=== PATIENT | male | born 1955 | race Caucasian/White ===

== ENCOUNTER 2018-06-19 13:55 | Emergency (ER) | payer OTHER, MEDICAID ==
[~2018-06-19] VITALS: Ht 157.5 cm; Wt 82.6 kg
[2018-06-19 13:55] VITALS: BP 148/87
--- NOTE | 2018-06-19 13:55 | NUR ---
PATIENT BIBA TO BED 3 AT THIS TIME.
--- NOTE | 2018-06-19 14:00 | NUR ---
BIBA C/O INTERMITTENT CP X 1 DAY 12/12 NON RADIATING, EPIGASTRIC AREA, & C/O N/V X 1 DAY. NSR, HR EVEN/REGULAR, PT IN NSR, PT DENIES FEVER/RECENT ILLNESS. PT STATES HE HAS HX OF "CARDIAC DISORDER" BUT DOESN'T KNOW THE EXACT PROBLEM. SKIN IS PINK/WARM/DRY; AAOX4 WITH UNSTEADY GAIT; LUNGS CLEAR BL;PATIENT POSITIONED FOR COMFORT; HOB ELEVATED; BEDRAILS UP X1; BED DOWN. ER MD MADE AWARE OF PT STATUS.
--- NOTE | 2018-06-19 14:03 | NUR ---
PT PLACED ON SLICING MACHINE TENDER
--- NOTE | 2018-06-19 14:09 | NUR ---
PT PLACED ON NC 2 LPM DUE TO O2 SAT 90% RA
[2018-06-19] MEDS ORDERED: KETOROLAC 60 MG/2 ML VIAL IM ONE (14:20)
--- NOTE | 2018-06-19 14:23 | NUR ---
ERMD AT BEDSIDE
[2018-06-19 14:24] LABS: BASOPHILS # (AUTO) 0.1 K/uL (0.00-0.22); BASOPHILS % (AUTO) 1.7 % (0.0-2.0); EOSINOPHILS % (AUTO) 0.8 % (0.0-4.0); HEMATOCRIT 41.4 % (36-52); LYMPHOCYTES # (AUTO) 1.4 K/uL (2.0-11.5); LYMPHOCYTES % (AUTO) 25.8 % (20.5-51.1); MEAN CORPUSCULAR HEMOGLOBIN 29 pg (27-31); MEAN CORPUSCULAR HGB CONC 34 g/dL (33-37); MEAN CORPUSCULAR VOLUME 85.4 fL (80-94); MONOCYTES # (AUTO) 0.3 K/uL (0.8-1.0); MONOCYTES % (AUTO) 6.1 % (1.7-9.3); NEUTROPHILS # (AUTO) 3.6 K/uL (1.8-7.7); NEUTROPHILS % (AUTO) 65.6 % (42.2-75.2); PLATELET COUNT (AUTO) 283 K/uL (140-450); RED BLOOD CELL COUNT(AUTO) 4.85 MIL/uL (4.20-6.10); RED CELL DISTRIBUTION WIDTH 14.7 % (11.6-13.7); WHITE BLOOD COUNT (AUTO) 5.5 K/uL (4.8-10.8)
[2018-06-19 14:44] LABS: ALBUMIN 3.8 g/dL (3.4-5.0); ANION GAP 15.6 (8-16); CARBON DIOXIDE 25.1 mmol/L (21-32); POTASSIUM 3.7 mmol/L (3.5-5.1); TOTAL BILIRUBIN 0.3 mg/dL (0.0-1.0)
--- NOTE | 2018-06-19 15:45 | NUR ---
PATIENT UNABLE TO PASS ROAD TEST AT THIS TIME. ER MD NOTIFIED.
--- NOTE | 2018-06-19 16:05 | NUR ---
CALLED FOR RIDE, SHE STATES SHE DOES NOT HAVE A CAR RIGHT NOW AND CANNOT PICK HIM UP.
[2018-06-19 17:24] VITALS: BP 128/80
--- NOTE | 2018-06-19 17:25 | NUR ---
Patient discharged with v/s stable. Written and verbal after care instructions given and explained. Patient verbalized understanding. Wheel Chair Assisted with to car, PICKED HIM UP FROM ED. PRESCRIPTION MOTRIN GIVEN. . All questions addressed prior to discharge. Advised to follow up with PMD.
== END 2018-06-19 17:25 | disposition home or self-care (01) ==
LOC: MED 13:55
DX: R07.89 Other chest pain (principal); R06.02 Shortness of breath; R05 Cough; R11.2 Nausea with vomiting, unspecified; I10 Essential (primary) hypertension; E11.9 Type 2 diabetes mellitus without complications; F17.210 Nicotine dependence, cigarettes, uncomplicated
CPT/HCPCS: 36415; 71045; 80053; 83880; 84484; 85025; 85610; 85730; 93005; 96372; 99284; G0482; J1885; Q0092

== ENCOUNTER 2018-08-11 20:43 | Emergency (ER) | payer OTHER, MEDICAID ==
[~2018-08-11] VITALS: Ht 157.5 cm; Wt 88.5 kg
--- NOTE | 2018-08-11 20:44 | NUR ---
EDUARDA ON GURNEY TO BED #12
[2018-08-11 20:52] VITALS: BP 148/91
--- NOTE | 2018-08-11 20:55 | NUR ---
PT BIBA C/O ABD PAIN. PT STATES HE WAS DRINKING SOME BEER AT HOME, SUDDEN ONSET OF LEFT FLANK PAIN; STATES 10/10 SHARP PAIN; +TENDER UPON PALPATION, ABD FIRM AND ROUND. PT SPEAKING IN CLEAR AND COMPLETE SENTENCES, ACTING APPROPRIATLY. BREATHING EQUAL AND [id number]. 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 COMFORT MEASURES PROVIDED. PENDING ER MD JOHNSON. PMH: HTN, DM
[2018-08-11] MEDS ORDERED: NACL 0.9% 1,000 ML IV ONE ×2 (21:05→22:00)
[2018-08-11] MEDS ORDERED: MORPHINE SULFATE 4 MG/ML SYR IVP ONE (21:05)
[2018-08-11] MEDS ORDERED: DICY20TA13 PO (21:29)
[2018-08-11] MEDS ORDERED: ASPI-1173 PO (21:29)
[2018-08-11] MEDS ORDERED: HYDR-1098 PO (21:29)
[2018-08-11] MEDS ORDERED: LISI-420 PO (21:29)
[2018-08-11] MEDS ORDERED: SPIR25TA20 PO (21:29)
[2018-08-11] MEDS ORDERED: ATOR10TA PO (21:29)
[2018-08-11] MEDS ORDERED: CARV25TA PO (21:29)
[2018-08-11 21:31] LABS: BASOPHILS # (AUTO) 0.1 K/uL (0.00-0.22); BASOPHILS % (AUTO) 1.4 % (0.0-2.0); EOSINOPHILS % (AUTO) 0.8 % (0.0-4.0); HEMATOCRIT 38.5 % (36-52); HEMOGLOBIN 12.9 g/dL (12.0-18.0); LYMPHOCYTES % (AUTO) 40.6 % (20.5-51.1); MEAN CORPUSCULAR HEMOGLOBIN 29 pg (27-31); MEAN CORPUSCULAR HGB CONC 34 g/dL (33-37); MEAN CORPUSCULAR VOLUME 85.1 fL (80-94); MONOCYTES # (AUTO) 0.3 K/uL (0.8-1.0); MONOCYTES % (AUTO) 6.9 % (1.7-9.3); NEUTROPHILS # (AUTO) 2.4 K/uL (1.8-7.7); NEUTROPHILS % (AUTO) 50.3 % (42.2-75.2); PLATELET COUNT (AUTO) 318 K/uL (140-450); RED BLOOD CELL COUNT(AUTO) 4.53 MIL/uL (4.20-6.10); RED CELL DISTRIBUTION WIDTH 14.1 % (11.6-13.7); WHITE BLOOD COUNT (AUTO) 4.8 K/uL (4.8-10.8)
[2018-08-11 21:46] LABS: CARBON DIOXIDE 23.6 mmol/L (21-32); CREATININE 0.9 mg/dL (0.7-1.3); POTASSIUM 3.6 mmol/L (3.5-5.1)
[2018-08-11 21:51] LABS: ALBUMIN 3.9 g/dL (3.4-5.0); TOTAL BILIRUBIN 0.2 mg/dL (0.0-1.0)
--- NOTE | 2018-08-11 22:03 | NUR ---
PT TO CT VIA ALEXANDRA BY [facility].
--- NOTE | 2018-08-11 22:03 | NUR ---
PT TAKEN TO CT
[2018-08-11] MEDS ORDERED: LACTULOSE 20 GM/30 ML UDC PO ONE (23:10)
[2018-08-11] MEDS ORDERED: LACTULOSE 20 GM/30 ML UDC ONE ×2 (23:28→23:45)
--- NOTE | 2018-08-11 23:54 | NUR ---
Patient discharged with v/s stable. Written and verbal after care instructions given and explained. Patient verbalized understanding. Ambulatory with steady gait. All questions addressed prior to discharge. Advised to follow up with PMD.
[2018-08-11 23:55] VITALS: BP 146/95
--- NOTE | 2018-08-12 13:15 | NUR ---
Late entry. Confirmed with Rn that 0.9 NS IV 1000ml completed at 2325.
== END 2018-08-11 23:54 | disposition home or self-care (01) ==
LOC: MED 20:43
DX: K59.00 Constipation, unspecified (principal); F10.129 Alcohol abuse with intoxication, unspecified; E11.9 Type 2 diabetes mellitus without complications; I10 Essential (primary) hypertension; Z79.82 Long term (current) use of aspirin; Z79.899 Other long term (current) drug therapy; Y90.8 Blood alcohol level of 240 mg/100 ml or more
CPT/HCPCS: 36415; 74176; 80053; 83690; 85025; 96374; 99284; G0482; J2270; J7030

== ENCOUNTER 2018-09-19 12:20 | Emergency (ER) | payer OTHER, MEDICAID ==
[~2018-09-19] VITALS: Ht 167.6 cm; Wt 85.8 kg
[~2018-09-19 12:20] MED LIST: ASPI-1173 PO; ATOR10TA PO; CARV25TA PO; DICY20TA13 PO; HYDR-1098 PO; LISI-420 PO; SPIR25TA20 PO
[2018-09-19 12:24] VITALS: BP 156/105
--- NOTE | 2018-09-19 12:31 | NUR ---
PT AMBULATED TO ER BED 6
--- NOTE | 2018-09-19 12:44 | NUR ---
C/O CONSTANT "HEAVY" CP X 3 DAYS AT 8/10. PT REPORTS SOB AND NAUSEA. DENIES VOMITING AND DIAEEHEA; SKIN IS PINK/WARM/DRY W/O EDEMA; AAOX4 WITH EVEN AND STEADY GAIT; LUNGS CLEAR BL; HR EVEN AND REGULAR; PT DENIES ANY FEVER OR COUGH AT THIS TIME; PATIENT STATES PAIN OF 8/10 AT THIS TIME; VSS; PATIENT POSITIONED FOR COMFORT; HOB ELEVATED; BEDRAILS UP X1; BED DOWN. ER MD MADE AWARE OF PT STATUS. PT IS ON MONITOR.
--- NOTE | 2018-09-19 13:27 | NUR ---
DR. CRUZ BEDSIDE EVALUATING PT
[2018-09-19 13:51] LABS: BASOPHILS # (AUTO) 0.1 K/uL (0.00-0.22); BASOPHILS % (AUTO) 2.2 % (0.0-2.0); EOSINOPHILS % (AUTO) 1.1 % (0.0-4.0); HEMATOCRIT 39.5 % (36-52); HEMOGLOBIN 13.1 g/dL (12.0-18.0); LYMPHOCYTES # (AUTO) 1.3 K/uL (2.0-11.5); LYMPHOCYTES % (AUTO) 29.3 % (20.5-51.1); MEAN CORPUSCULAR HEMOGLOBIN 28 pg (27-31); MEAN CORPUSCULAR HGB CONC 33 g/dL (33-37); MEAN CORPUSCULAR VOLUME 85.3 fL (80-94); MONOCYTES # (AUTO) 0.3 K/uL (0.8-1.0); MONOCYTES % (AUTO) 5.9 % (1.7-9.3); NEUTROPHILS # (AUTO) 2.7 K/uL (1.8-7.7); NEUTROPHILS % (AUTO) 61.5 % (42.2-75.2); PLATELET COUNT (AUTO) 289 K/uL (140-450); RED BLOOD CELL COUNT(AUTO) 4.63 MIL/uL (4.20-6.10); RED CELL DISTRIBUTION WIDTH 14.7 % (11.6-13.7); WHITE BLOOD COUNT (AUTO) 4.3 K/uL (4.8-10.8)
[2018-09-19 14:08] LABS: ALBUMIN 3.7 g/dL (3.4-5.0); ANION GAP 14.3 (8-16); CARBON DIOXIDE 25.6 mmol/L (21-32); POTASSIUM 3.9 mmol/L (3.5-5.1); TOTAL BILIRUBIN 0.3 mg/dL (0.0-1.0)
--- NOTE | 2018-09-19 16:21 | NUR ---
PT IS LYING IN THE BED. VSS.
--- NOTE | 2018-09-19 17:14 | NUR ---
PT IS BACK FROM BATHROOM AND PLACED COMFORT IN BED. VSS.
--- NOTE | 2018-09-19 18:17 | NUR ---
PT'S BG 83 MG/DL. DIABETIC DIET ORDERED FOR PT.
--- NOTE | 2018-09-19 18:34 | NUR ---
SPOKE TO DALJIT LEIVA RN OF [facility], 315. TEL: [phone] TO GIVE REPORT OF THE PT.
[2018-09-19] MEDS ORDERED: ASPIRIN 81 MG TAB.CHEW PO ONE (18:50)
--- NOTE | 2018-09-19 18:56 | NUR ---
PO MEDS GIVEN-NADR At this time
--- NOTE | 2018-09-19 18:58 | NUR ---
SPOKE TO DALJIT LEIVA RN, REPORT GIVEN PT HAS TAKEN 325 MG ASPIRIN.
[2018-09-19 19:00] VITALS: BP 150/100
--- NOTE | 2018-09-19 19:00 | NUR ---
Patient to be transferred to [place], [facility]. Is being transferred due to INSURANCE. Receiving facility has accepting physician and available space. ER physician has signed transfer form. Patient or responsible alliance party has agreed to transfer and signed form. Patient belongings inventoried and will be sent with patient. Copy of nursing notes, lab reports, EKG, Physicians Orders and X-rays to be sent with patient. Report called to DALJIT LEIVA at receiving facility. [facility] ambulance service has been called for transfer. ETA is 15 MINUTES.
== END 2018-09-19 19:00 | disposition short-term general hospital (02) ==
LOC: MED 12:20
DX: R07.89 Other chest pain (principal); R06.02 Shortness of breath; R11.2 Nausea with vomiting, unspecified; R53.1 Weakness; I10 Essential (primary) hypertension; E11.9 Type 2 diabetes mellitus without complications; Z79.82 Long term (current) use of aspirin; Z79.899 Other long term (current) drug therapy; Z86.79 Personal history of other diseases of the circulatory system
CPT/HCPCS: 36415; 71045; 80053; 82948; 83690; 83880; 84484; 85025; 85379; 99285; Q0092

== ENCOUNTER 2019-05-27 19:52 | Emergency (ER) | payer OTHER, MEDICAID ==
[~2019-05-27] VITALS: Ht 185.4 cm; Wt 99.8 kg
[~2019-05-27 19:52] MED LIST changes: -DICY20TA13 PO
[2019-05-27 20:01] VITALS: BP 152/102
--- NOTE | 2019-05-27 20:05 | NUR ---
63 YEAR OLD MALE BIBA COMPLAINS OF ABDOMINAL PAIN X ALL DAY. PATIENT ALSO STATES COUGH PRESENT. LUNGS CTABL, BREATHING EVEN AND UNLABORED. PATIENT STATES HE HAD SOME SHORTNESS OF BREATHE. RR 15, SPO2 100% ON 1.5 L NC. PATIENT AOX4, SKIN WARM AND DRY. BED IN LOWEST POSITION, LOCKED, BED RAIL UPX1. PT PLACED ON BEDSIDE MONITOR, VS STABLE. ERMD MADE AWARE OF PT STATUS PMH - CHF, DM2, HTN ALLERGIES - IBUPROFEN
[2019-05-27] MEDS ORDERED: MORPHINE SULFATE 4 MG/ML SYR IVP ONE (20:10)
[2019-05-27] MEDS ORDERED: ONDANSETRON 4 MG/2 ML VIAL IVP ONE (20:10)
[2019-05-27] MEDS ORDERED: NACL 0.9% 1,000 ML IV ONE ×2 (20:10→22:20)
[2019-05-27 20:23] LABS: BASOPHILS # (AUTO) 0.1 K/uL (0.00-0.22); BASOPHILS % (AUTO) 1.2 % (0.0-2.0); EOSINOPHILS % (AUTO) 0.8 % (0.0-4.0); HEMATOCRIT 43.8 % (36-52); HEMOGLOBIN 14.2 g/dL (12.0-18.0); LYMPHOCYTES % (AUTO) 31.3 % (20.5-51.1); MEAN CORPUSCULAR HEMOGLOBIN 27 pg (27-31); MEAN CORPUSCULAR HGB CONC 32 g/dL (33-37); MONOCYTES # (AUTO) 0.3 K/uL (0.8-1.0); MONOCYTES % (AUTO) 4.3 % (1.7-9.3); NEUTROPHILS % (AUTO) 62.4 % (42.2-75.2); PLATELET COUNT (AUTO) 315 K/uL (140-450); RED BLOOD CELL COUNT(AUTO) 5.28 MIL/uL (4.20-6.10); WHITE BLOOD COUNT (AUTO) 6.4 K/uL (4.8-10.8)
--- NOTE | 2019-05-27 20:45 | NUR ---
MULTIPLE ATTEMPTS AT IVS MADE FOR PATIENT BY FIRE PREVENTION RESEARCH ENGINEER AND CHARGE NURSE, DR MIRANDA AT BEDSIDE
[2019-05-27 20:52] LABS: ALBUMIN 4.1 g/dL (3.4-5.0); ANION GAP 17.5 (8-16); CARBON DIOXIDE 26.5 mmol/L (21-32); CREATININE 1.1 mg/dL (0.6-1.3); TOTAL BILIRUBIN 0.3 mg/dL (0.0-1.0)
--- NOTE | 2019-05-27 21:05 | NUR ---
CONSENT SIGNED FOR CT WITH CONTRAST BY PATIENT, ERMD, AND WITNESS
[2019-05-27 21:44] LABS: APPEARANCE,URINE CLEAR (CLEAR); BILIRUBIN,URINE NEGATIVE (NEGATIVE); BLOOD, URINE NEGATIVE (NEGATIVE); COLOR,URINE YELLOW (YELLOW); LEUKOCYTE ESTERASE ,URINE NEGATIVE (NEGATIVE); NITRITE, URINE NEGATIVE (NEGATIVE); PH,URINE 5.5 (5.0-9.0); UGLUCOSE NEGATIVE (NEGATIVE)
--- NOTE | 2019-05-27 21:57 | NUR ---
PATIENT ALERT AND AWAKE, BREATHING EVEN AND UNLABORED
--- NOTE | 2019-05-27 22:22 | NUR ---
PATIENT GAIT ASSESSED, STILL DIZZINESS AND FEELS KNEES WEAK. PATIENT GAIT IS UNSTEADY. ERMD MADE AWARE
--- NOTE | 2019-05-27 22:46 | NUR ---
PATIENT ALERT AND AWAKE, BREATHING EVEN AND UNLABORED
[2019-05-28 00:38] VITALS: BP 117/84
== END 2019-05-28 00:28 | disposition home or self-care (01) ==
LOC: MED 19:52
DX: R10.33 Periumbilical pain (principal); E11.9 Type 2 diabetes mellitus without complications; I11.0 Hypertensive heart disease with heart failure; I50.9 Heart failure, unspecified; Z79.899 Other long term (current) drug therapy; Z79.82 Long term (current) use of aspirin
CPT/HCPCS: 36415; 74177; 80053; 81003; 82150; 83690; 83880; 85025; 96374; 96375; 99285; J2270; J2405; J7030; Q9967